=== PATIENT | male | born 1945 | race Caucasian/White ===

== ENCOUNTER 2021-06-07 05:28 | Emergency (ER) | payer MEDICARE ==
[~2021-06-07] VITALS: Ht 185.4 cm; Wt 62.6 kg
[~2021-06-07 05:28] MED LIST: ADULT LOW DOSE81 MG PO; CAPTOPRIL25 MG PO; FOLIC ACID1 MG PO; LIPITOR20 MG PO; METOPROLOL TART50 MG PO; NIACIN500 MG PO; NITROGLYCERIN0.4 MG SL; VITAMIN B-6100 MG PO; VITAMIN C500 M1 PO
[2021-06-07] MEDS ORDERED: ONDANSETRON ODT8 MG PO (09:34)
== END 2021-06-07 10:05 | disposition home or self-care (01) ==
LOC: ED 05:28
DX: R10.12 Left upper quadrant pain (principal); R11.2 Nausea with vomiting, unspecified; I25.2 Old myocardial infarction; Z87.891 Personal history of nicotine dependence; Z79.82 Long term (current) use of aspirin; Z79.899 Other long term (current) drug therapy
CPT/HCPCS: 74177; 80053; 81001; 83690; 85025; 96375; 99284-25; J1170; J2405; J7030; Q9967